=== PATIENT | male | born 1940 | race Caucasian/White ===

== ENCOUNTER 2020-01-21 19:50 | Observation (INO) | payer OTHER, SELFPAY ==
[2020-01-21] VITALS (9 sets, daily range): BP systolic 111–149; BP diastolic 59–95; PULSE 61–129; RESP 16–20; TEMP 35.7–36.2; O2SAT 96–98; BMI 29.1
--- NOTE | ~2020-01-21 | XR_ITS ---
EXAMINATION: XR chest 2V DATE: 01/21/2020 20:44 INDICATION: Tachycardia TECHNIQUE: PA and lateral views of the chest are obtained. COMPARISON: None available FINDINGS: The lungs are hyperinflated but free of acute opacities. There is scarring of the lung apic es. There is no pleural effusion or pneumothorax. The cardiomediastinal silhouette is normal. There i s moderate thoracic spondylosis. IMPRESSION: 1. No acute cardiopulmonary abnormality. Reviewed, dictated and finalized at location A.
--- NOTE | 2020-01-21 20:03 | ECG_ITS ---
Measurements Intervals [place] Rate: 130 P: [place]: 0 QRS: -80 QRSD: 131 T: 24 QT: 305 QTc: 449 Interpretive Statements ATRIAL FLUTTER/TACHYCARDIA WITH RAPID VENTRICULAR RESPONSE LEFT AXIS DEVIATION RIGHT BUNDLE BRANCH BLOCK MINIMAL Q WAVES- ANTEROLAT/HIGH LAT LEADS INFERIOR INFARCT, AGE INDETERMINATE BASELINE ARTIFACT- AVL, V2-V3 ABNORMAL ECG Electronically Signed On 01-21-2020 20:21:50 CDT by Rock Gonsalez D.O.
--- NOTE | 2020-01-21 20:03 | ED.ARRPALP ---
HPI - Arrhythmia/Palpitations General Chief Complaint: Arrhythmia/Palpitations Stated Complaint: elevated pulse rate Time Seen by Provider: 01/21/20 20:03 Source: patient Mode of arrival: ambulatory Limitations: no limitations History of Present Illness HPI narrative: Patient is a 79-year-old male who presents for evaluation of palpitations. Patient states that he was eating dinner this evening when his watch alerted him to a fast heart rate greater than 140. Patient states he otherwise is feeling well. Patient denies any current chest pain or shortness of breath. He states he has palpitations from time to time, but has not noticed any palpitations this evening. No lightheadedness or dizziness. Patient states he has a history of a right bundle branch block, but otherwise is not aware of having any heart problems. He does not follow with a psychiatry instructor. He is not on any anticoagulation. Patient denies recent illness, no recent nausea, vomiting, no extreme exertional activity. Related Data Home Medications Medication Instructions Recorded Confirmed fexofenadine 180 mg PO DAILY 01/21/20 01/21/20 finasteride 5 mg PO DAILY 01/21/20 01/21/20 fluorouracil 5 % TOPICAL DAILY 01/21/20 01/21/20 levothyroxine [Synthroid] 125 mcg PO DAILY 01/21/20 01/21/20 vjnlyqhmplgl-xwc-nccb-FA-vit K 1 tablet PO DAILY 01/21/20 01/21/20 [Adults Multivitamin] pravastatin 40 mg PO DAILY 01/21/20 01/21/20 tamsulosin 0.4 mg PO DAILY 01/21/20 01/21/20 Allergies Allergy/AdvReac Type Severity Reaction Status Date / Time amoxicillin Allergy Unknown Unknown Verified 01/21/20 21:38 Penicillins Allergy Unknown RED ITCHY Unverified 01/21/20 21:38 RASH Review of Systems Review of Systems: Narrative: CONSTITUTIONAL: Denies fever CARDIOVASCULAR: Denies chest pain, denies palpitations, reports elevated heart rate RESPIRATORY: Denies cough or dyspnea. GASTROINTESTINAL: Denies abdominal pain SKIN: Denies rash MUSCULOSKELETAL: Denies back pain NEUROLOGIC: Denies headache PMFSH Past Medical History Medical History Hyperlipidemia Right inguinal hernia Skin cancer Surgical History Surgical History H/O partial thyroidectomy History of tonsillectomy Social History Social History (Updated 01/21/20 @ 20:20 by Donna Gonzalez MD) Smoking status: Current some day smoker Tobacco type: pipe Alcohol intake: never Substance use: never Gender identity (if verbalized by the patient): Male Exam Narrative: Exam Narrative: GENERAL: Awake, alert, conversant HEAD: Normocephalic, atraumatic. EYES: PERRLA and EOMI. ENT: Nares clear, no rhinorrhea or epistaxis. Mucous membranes moist. NECK: Supple. CHEST: No respiratory distress, breathing even and non labored HEART: Tachycardic rate, regular rhythm ABDOMEN:Non distended, non tender EXTREMITIES: Normal range of motion. No edema. SKIN: Warm, dry, no rash. NEURO:No focal deficits. Alert and oriented x3 Course Vital Signs Vital signs: Vital Signs Temperature 36.2 C L 01/21/20 19:54 Pulse Rate 129 H 01/21/20 19:54 Respiratory Rate 16 01/21/20 19:54 Blood Pressure 149/87 H 01/21/20 19:54 Pulse Oximetry 98 01/21/20 19:54 Temperature 36.2 C L 01/21/20 19:54 Pulse Rate 123 H 01/21/20 21:41 Respiratory Rate 20 01/21/20 21:41 Blood Pressure 111/71 01/21/20 21:41 Pulse Oximetry 96 01/21/20 21:41 MDM - Arrhythmia/Palpitations MDM Narrative Medical decision making narrative: Patient is a 79-year-old male who presented for evaluation of palpitations. At the time of initial assessment, ABCs are intact, patient is tachycardic in the 130s, EKG is consistent with a flutter with RVR. IV access obtained and labs are drawn. Patient was given IV fluids without any improvement in his tachycardia. Given possible unreliable symptoms onset after I discussed with martha
[2020-01-21 20:18] LABS: Basophils Percent Auto 0.4 % (0.2-1.2); Eosinophils Absolute Auto 0.2 K/mm3 (0-0.3); Hematocrit 45.9 % (42.0-52.0); Hemoglobin 15.6 g/dL (14.0-18.0); Immature Granulocyte Absolute 0.02 K/mm3 (0.00-0.031); Immature Granulocyte Percent A 0.2 % (0-0.5); Lymphocytes Absolute Auto 2.28 K/mm3 (0.9-3.2); Lymphocytes Percent Auto 26.9 % (18.3-44.2); Mean Corpuscular Hemoglobin 32.2 pg (26-34); Mean Corpuscular Volume 94.8 fl (80-100); Mean Platelet Volume 9.4 fl (7.4-10.4); Monocytes Absolute Auto 0.7 K/mm3 (0.1-0.6); Monocytes Percent Auto 8.1 % (2.6-8.5); Neutrophils Absolute Auto 5.3 K/mm3 (1.3-6.7); Neutrophils Percent Auto 62.4 % (45.5-73.1); Platelet Count Result 235 k/mm3 (150-375); Red Blood Count 4.84 M/mm3 (4.6-6.20); Red Cell Distribution Width 11.9 % (11.5-14.5); White Blood Count 8.5 K/mm3 (4.5-10.0)
--- NOTE | 2020-01-21 20:22 | PC.NURSE ---
lab notified of add on TSH
[2020-01-21] MEDS: SODIUM CHLORIDE 0.9% IV 1,000 ML 999 ML IV CONT (20:26)
[2020-01-21 20:27] LABS: Prothrombin Time 13.3 Seconds (11.1-14.7)
[2020-01-21] MEDS: ASPIRIN 81 MG CHEWABLE TABLET 324 MG PO (20:27)
[2020-01-21 20:28] LABS: Partial Thromboplastin Time 28.5 SECONDS (22.3-36.8)
[2020-01-21 20:31] LABS: Anion Gap 10.9 mmol/L (7-16); Blood Urea Nitrogen 17 mg/dL (9-20); Calcium 9.8 mg/dL (8.4-10.2); Carbon Dioxide 29 mmol/L (22-30); Chloride 102 mmol/L (98-107); Estimated Glomerular Filt Rate > 60; Glucose 109 mg/dL (75-110); Potassium 3.9 mmol/L (3.4-5.0); Sodium 138 mmol/L (137-145)
[2020-01-21 20:43] LABS: Troponin I 0.025 ng/mL (0.000-0.034)
[2020-01-21] MEDS: dilTIAZem HCl INJ 25 MG/5 ML VIAL 10 MG IV PUSH (21:17)
[2020-01-21] MEDS: ENOXAPARIN 100 MG/ML SYRINGE 90 MG SUB-Q (22:46)
--- NOTE | 2020-01-21 23:37 | PC.NURSE ---
This patient, Magnus Kaur, was admitted to IMU Room 207-01 on 01/21/20 at 2315. Patient/family oriented to hospital policies and general routines including ID bracelet, bed and alarms, visiting hours, pain management, procedures, bathroom and other care routines, personal items, smoking policy, room service/diet, and visiting hours. Valuables list has been completed. Information on how to activate the Rapid Response Team has been discussed. Patient/Family are encouraged to report perceived risks to care and to ask questions if they do not understand what they are told or what they should do.
[2020-01-22] VITALS (15 sets, daily range): BP systolic 115–130; BP diastolic 60–67; PULSE 50–68; RESP 18–20; TEMP 35.6–36.3; O2SAT 98–100
[2020-01-22 00:03] LABS: Troponin I 0.038 ng/mL (0.000-0.034)
[2020-01-22] MEDS: PRAVASTATIN SODIUM 20 MG TABLET 40 MG PO (09:52)
[2020-01-22] MEDS: MULTIVITAMINS /C LUTEIN (CENTRUM SILVER) TABLET *BKC 1 TAB PO (09:52)
[2020-01-22] MEDS: FINASTERIDE 5 MG TABLET PO (09:52)
[2020-01-22] MEDS: LEVOTHYROXINE SODIUM 125 MCG TABLET PO (09:53)
[2020-01-22] MEDS: LORATADINE 10 MG TABLET PO (09:53)
[2020-01-22] MEDS: TAMSULOSIN HCL 0.4 MG CAPSULE PO (09:53)
[2020-01-22] MEDS: ENOXAPARIN 100 MG/ML SYRINGE 90 MG SUB-Q (09:53)
--- NOTE | 2020-01-22 09:53 | PM.IMHP ---
H&P: HPI History of Present Illness Chief complaint: A flutter with RVR Narrative: Magnus Kaur is a 79 year old male with PMH significant for hyperlipidemia, hypothyroidism following thyroid lobectomy, current tobacco use with 60 year smoking hx, and benign prostatic hyperplasia who presented to the emergency department for the evaluation of tachycardia demonstrated on his watch. 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 He reports that he tried to stay hydrated. He sat down to eat dinner at 6PM and his watch alerted him that his heart rate was in the 130s. He was completely asymptomatic during the episode and had no associated palpitations, dizziness, lightheadedness, chest pain, or dyspnea. He reports no prior history of atrial fibrillation or atrial flutter. He reports a known history of right bundle branch block. He has no hx of coronary artery disease or CVA. 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 He denies angina with exertion. He reports a good exercise capacity. He has no additional complaints at this time. Initial workup in the emergency department included EKG with atrial flutter with RVR (rate 130), left axis deviation, right bundle branch block, Q waves in the anterolateral and high lateral leads, QTc 449, WBC 8,500, Hb 15.6, Hct 45.9, platelets 235, sodium 138, potassium 3.9, chloride 102, CO2 29, BUN 17, creatinine 1.1, glucose 109, troponin 0.025 with flat trend up to 0.040, TSH 1.65, and CXR without acute abnormalities. He was treated with IV diltiazem and converted to normal sinus rhythm in the ED. He was anticoagulated with therpeutic lovenox. He was admitted to the hospitalist service for further evaluation and treatment and cardiology was consulted. Review of Systems Review of Systems: Narrative: Constitutional: Denies sick contacts, fever, chills, fatigue, and appetite change. Eyes: Denies vision change. No additional eye complaints. ENT: Denies change in hearing, nasal congestion, dysphagia, odynophagia, and sore throat. Cardiovascular: Reports tachycardia on watch with rates in 130s. Denies palpitations and chest pain. Denies PND and orthopnea. Denies dyspnea on exertion. Respiratory: Denies cough and shortness of breath. Gastrointestinal: Denies abdominal pain, nausea, and vomiting. Denies melena and hematochezia. Genitourinary: Denies dysuria, urgency, and hesitancy. Reports increased urinary frequency due to BPH. Musculoskeletal: Denies joint pain and swelling. Denies muscle cramps and weakness. Skin: Reports that he follows with a gta and is scheduled for lesion excisions in the near future. Notes birthmark on the right forehead. Neurologic: Denies focal weakness, paresthesias, confusion, and speech change. Psychiatric: Denies mood change. Denies anxiety and depression. Hematologic: Denies easy bruising and bleeding. All systems reviewed & are unremarkable except as noted in HPI and below PMFSH Past Medical History Medical History Benign prostatic hyperplasia Hyperlipidemia Hypothyroidism Skin cancer Surgical History Surgical History H/O partial thyroidectomy History of right inguinal hernia repair History of tonsillectomy Hx of vasectomy Family History Family History Father Colon cancer Mother Cancer of stomach Daughter Migraines Social History Social History Social History: Mr. Kaur lives at home with his Rody Kaur. He has 4 children. 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 He wises to be a full code and he has designated his , Rody Kaur, as his surrogate decision maker. He smokes a pipe and notes the tobacco equivalent to 3/4 PPD. He reports a 60 year smoking hx. He reports a hx of alcohol use (2-3 rum
--- NOTE | 2020-01-22 12:51 | PM.CNCAR ---
Assessment and Plan Assessment and plan (1) Atrial flutter with rapid ventricular response: Code(s): I48.92 - Unspecified atrial flutter Status: Acute Assessment and Plan: spontaneously converted to sinus rhythm after receiving intravenous diltiazem. Maintaining sinus rhythm without directed medical therapy. Given enoxaparin 1 milligram/kilogram subcutaneous q.12 hours from the emergency department. Asymptomatic. No prior history. CHADS2 Vasc score 2. discussed risks, benefits, and alternatives with anticoagulation with regards to embolic stroke risk versus bleeding. Patient verbalized understanding. All questions answered to his satisfaction. I would recommend initiation of systemic anticoagulation and patient agrees. Eliquis 5 mg twice daily. Initiate metoprolol tartrate 12.5 mg twice daily. Outpatient 2D echocardiogram. Further determination with regards to pursue to be ischemic evaluation depending on recurrence of arrhythmia and or associated symptoms, echocardiographic findings. explained in detail management options including medications, referral for radiofrequency ablation, concerns with uncontrolled atrial flutter, the pathophysiology and plan of care. Patient agrees. Will give metoprolol tartrate prior to discharge. Patient may be discharged home in stable condition to follow up as an outpatient. He will contact the office Thursday follow-up in the office within the next 2-4 weeks. Will set up a 2D echocardiogram in our office in that time. If head injury, bleeding and/or significant falls advised to go to ER immediately. Patient verbalized understanding. Monitor For bleeding on systemic anticoagulation. do not take aspirin concomitantly with systemic anticoagulation given clinical circumstances. (2) Hyperlipidemia: Code(s): E78.5 - Hyperlipidemia, unspecified Status: Chronic Assessment and Plan: continue pravastatin. (3) Elevated troponin: Code(s): R79.89 - Other specified abnormal findings of blood chemistry Status: Acute Assessment and Plan: Not acute coronary syndrome, no anginal symptoms. Non [place] troponin elevation most likely type 2 infarct secondary to atrial flutter with rapid ventricular response not plaque rupture and/or myocardial infarction. (4) Tobacco dependence: Code(s): F17.200 - Nicotine dependence, unspecified, uncomplicated Status: Chronic Assessment and Plan: Smoking cessation counseling. (5) Right bundle branch block (RBBB): Code(s): I45.10 - Unspecified right bundle-branch block Status: Acute Assessment and Plan: chronic. History of Present Illness History of Present Illness Consult date/time: Date of service:01/22/20 12:51 This is a cardiology consultation at the request of Yisel Pascual of the [facility] service for our opinion regarding atrial flutter with rapid ventricular response. Requesting physician: Yisel Pascual PA-C Consult reason: Other ( Atrial flutter with rapid ventricular response) Reason For Visit: A flutter with RVR Narrative: patient is a 79-year-old male with a past medical history significant for hyperlipidemia, hypothyroidism, tobacco abuse, and chronic right bundle branch block who was in his usual state of health when he noted on his Apple watch it was giving him an alert to his heart rate was elevated at 128 beats per minute. He informed his who then advised him to the present to the emergency department. he was found to be in atrial flutter with RVR for which she received IV diltiazem and subsequently converted to sinus rhythm which he is maintained. He denies any symptoms at any time. he denies palpitations, chest pain, dizziness, shortness of breath, weakness, fatigue, falls. He denies recent illnesses, sick contacts, nausea, vomiting, lower extremity edema, orthopnea and/or PND. He remains active and has no limitations. He has no prior kno
[2020-01-22] MEDS: METOPROLOL TARTRATE 12.5 MG TABLET PO (13:26)
--- NOTE | 2020-01-22 15:02 | PC.NURSE ---
Spoke with Dr Funes regarding patient becoming bradycardic. Pt is asymptomatic. Dr. Funes is ok with patient being discharged on metoprolol 12.5mg q12hr. Pt to hold metoprolol if he becomes symptomatic. REDD Blankenship notified of situation.
--- NOTE | 2020-01-22 16:29 | PM.DS ---
DS: Admitting Diagnosis Admitting Diagnosis Admitting Diagnosis: Unspecified atrial flutter DS: Discharge Diagnosis Discharge Diagnosis (1) Atrial flutter with rapid ventricular response: Code(s): I48.92 - Unspecified atrial flutter Status: Acute Assessment and Plan: Mr. Kaur is a 79 y.o. male with PMH significant for BPH, hyperlipidemia, hypothyroidism, and skin cancer who presented to the emergency department for the evaluation of tachycardia which was noted on his apple watch with rates of 130s. Initial EKG in the emergency department revealed atrial flutter with RVR (rate 130), left axis deviation, right bundle branch block, Q waves in the anterior and lateral leads, QTc 449, troponin elevation with flat trend up to 0.040, CXR without acute abnormalities, and CBC and CMP unremarkable. He remained asymptomatic during the episode. He converted to normal sinus rhythm with IV diltiazem in the emergency department. He was placed on therapeutic lovenox. TSH was WNL. Cardiology was consulted and recommended transitioning him to PO eliquis and metoprolol tartrate. CHADS2 Vasc score was 2. He was cleared from a cardiology standpoint for discharge with plans for close outpatient follow-up for 2D echocardiogram in the office. The risks of systemic anticoagulation were discussed with the patient at length and he verbalized understanding. Smoking cessation was encouraged and the risks of continued tobacco use were discussed. He was discharged in stable condition on the afternoon of 01/22/20. (2) Elevated troponin: Code(s): R79.89 - Other specified abnormal findings of blood chemistry Status: Acute Assessment and Plan: Troponin was elevated up to 0.040 with a flat trend. This is likely elevated in the setting of atrial flutter with RVR. Cardiology is on board and his troponin elevation was not felt to be due to acute coronary syndrome. (3) Hypothyroidism: Code(s): E03.9 - Hypothyroidism, unspecified Status: Chronic Assessment and Plan: TSH was normal at 1.65 01/21/20 and levothyroxine was continued. (4) Benign prostatic hyperplasia: Code(s): N40.0 - Benign prostatic hyperplasia without lower urinary tract symptoms Status: Chronic Assessment and Plan: Chronic with no acute issues. Tamsulosin and finasteride were continued. (5) Hyperlipidemia: Code(s): E78.5 - Hyperlipidemia, unspecified Status: Chronic Assessment and Plan: Pravastatin was continued. (6) Tobacco dependence: Code(s): F17.200 - Nicotine dependence, unspecified, uncomplicated Status: Chronic Assessment and Plan: Smoking cessation was encouraged at length. DS: Summary Hospital Course Reason for hospitalization: Tachycardia noted on apple watch Hospital Course: As above. Status at Discharge Functional status at discharge: independent ambulation Overall status at discharge: patient is back to baseline Time Spent with Patient Time attestation: Total time spent providing and/or coordinating discharge services: 35 minutes Exam Narrative: Exam Narrative: Vitals at presentation: Temp Pulse Resp BP Pulse Ox 97.2 F L 129 H 16 149/87 H 98 01/21/20 19:54 01/21/20 19:54 01/21/20 19:54 01/21/20 19:54 01/21/20 19:54 Vitals at discharge: Temp Pulse Resp BP Pulse Ox 97.3 F L 52 L 20 130/64 100 01/22/20 16:41 01/22/20 16:41 01/22/20 16:41 01/22/20 16:41 01/22/20 16:41 General: Very pleasant well-developed and well-nourished 79 y.o. male lying in the semi-recumbent position in bed in no acute distress. HEENT: Normocephalic and atraumatic. Sclerae anicteric. EOMI. Moist
== END 2020-01-22 17:10 | disposition home or self-care (01) ==
LOC: ANHED 22:33 → ANHIMU 22:44
PROVIDERS: Admitting Provider Internal Medicine; Emergency Provider Emergency Medicine; PCP Internal Medicine; Visit Provider Internal Medicine
DX: I48.92 Unspecified atrial flutter (principal); R79.89 Other specified abnormal findings of blood chemistry; I45.10 Unspecified right bundle-branch block; E89.0 Postprocedural hypothyroidism; E78.5 Hyperlipidemia, unspecified; C44.90 Unspecified malignant neoplasm of skin, unspecified; N40.0 Benign prostatic hyperplasia without lower urinary tract symptoms; F17.290 Nicotine dependence, other tobacco product, uncomplicated; Z79.899 Other long term (current) drug therapy
CPT/HCPCS: 36415; 71046; 80048; 84443; 84484; 85025; 85610; 85730; 93005; 96361; 96365; 96372; 99285; A9270; G0378; J1650; J7030

== ENCOUNTER 2020-12-21 12:25 | Outpatient (CLI) | payer OTHER, SELFPAY ==
--- NOTE | ~2020-12-21 | CT_ITS ---
EXAMINATION: CT abdomen pelvis wo/w con DATE: 12/21/2020 13:53 INDICATION: Gross hematuria. TECHNIQUE: Computed tomography (CT) of the abdomen and pelvis was performed without and with intraven ous contrast using a total of 130 mL Omnipaque-350 intravenous contrast with a double-bolus technique for simultaneous opacification of the renal parenchyma and renal collecting system. Automated exposu re control and iterative reconstruction technique were employed. The dose-length product was 1291.78 mGy-cm. COMPARISON: CT abdomen and pelvis 12/18/2010 FINDINGS: The visualized portions of the lung bases are clear without pneumonia or pleural effusion. The heart size is normal. No pericardial effusion. There is a small sliding hiatal hernia. There are cysts in t he liver measuring up to 4.6 cm. There is a gallstone in the gallbladder, which is normal in size. Th e spleen is normal. Incomplete pancreas divisum is noted. The adrenal glands are normal. There are cy sts in the kidneys measuring up to 15 mm on the right. There are 6 mm and 10 mm stones in right kidne y. There is a 5 mm stone in proximal right ureter. The ureters are well opacified by contrast. The le ft ureter is normal. There are 2 mm are 10 mm stones in the bladder. The prostate is mildly enlarged. The bladder is not well opacified. There is diverticulosis of the colon without evidence of divertic ulitis. There are no dilated loops of bowel. The appendix is normal. There are no pathologically enla rged lymph nodes. There is no free intraperitoneal fluid. There is a left inguinal hernia containing fat. There are likely changes of right inguinal hernia repair. There is severe lumbar spondylosis. IMPRESSION: 1. 5 mm stone in proximal right ureter. No hydronephrosis. 2. Nonobstructing right kidney stones. 3. Bladder stones. Reviewed, dictated and finalized at location A.
--- NOTE | ~2020-12-21 | XR_ITS ---
EXAMINATION: XR abdomen/kub 1V DATE: 12/21/2020 12:57 INDICATION: Gross hematuria. TECHNIQUE: A supine view of the abdomen on 2 radiographs was obtained. COMPARISON: CT abdomen and pelvis 12/21/2020 FINDINGS: There are no dilated loops of bowel. There is a 5 mm stone in proximal right ureter. There are 2 stones in right kidney with the larger measuring 10 mm. There are stones in the bladder. IMPRESSION: 1. Stones in the right kidney, proximal right ureter, and bladder. Reviewed, dictated and finalized at location A.
[2020-12-21 13:34] LABS: Estimated Glomerular Filt Rate 49
== END 2020-12-21 12:26 | disposition home or self-care (01) ==
PROVIDERS: PCP Internal Medicine; Visit Provider Nurse Practitioner Family
DX: R31.0 Gross hematuria (principal); N20.2 Calculus of kidney with calculus of ureter; N21.0 Calculus in bladder
CPT/HCPCS: 74018; 74178; Q9967

== ENCOUNTER 2021-01-02 08:31 | Outpatient (CLI) | payer OTHER, SELFPAY ==
--- NOTE | 2021-01-02 08:35 | ECG_ITS ---
Measurements Intervals [place] Rate: 61 P: 46 [place]: 219 QRS: -37 QRSD: 141 T: 27 QT: 439 QTc: 443 Interpretive Statements SINUS RHYTHM WITH FIRST DEGREE AV BLOCK LEFT AXIS DEVIATION RIGHT BUNDLE BRANCH BLOCK BASELINE ARTIFACT- I, III, AVR, AVL, AVF ABNORMAL ECG Electronically Signed On 01-02-2021 11:36:22 CDT by Rock Gonsalez D.O.
== END 2021-01-02 08:32 | disposition home or self-care (01) ==
PROVIDERS: PCP Internal Medicine; Visit Provider Urology
DX: N20.1 Calculus of ureter (principal); E78.5 Hyperlipidemia, unspecified; Z01.818 Encounter for other preprocedural examination; I44.0 Atrioventricular block, first degree
CPT/HCPCS: 87086; 93005

== ENCOUNTER 2021-01-07 07:55 | Outpatient (CLI) | payer OTHER, SELFPAY ==
--- NOTE | ~2021-01-07 | XR_ITS ---
EXAMINATION: XR abdomen/kub 1V EXAM DATE: 01/07/2021 08:11 INDICATION: Right ureteral stone. Hematuria. TECHNIQUE: Frontal projection of the upper abdomen, frontal projection lower abdomen/pelvis for inter pretation. Comparison is made to prior examination from 11/30/2024. FINDINGS: Probable right calyceal stones identified. Previously seen stone between the right L3 and L4 transverse process is no longer identified, but there is bowel gas overlying this entire region an d the sacrum. Some pelvic calcifications are consistent with phleboliths, and reportedly patient does have known bladder stones. Nonobstructive bowel gas pattern. Lung bases are unremarkable. IMPRESSION: Right nephrolithiasis, bladder stones. Reviewed, dictated and finalized at location A.
== END 2021-01-07 07:56 | disposition home or self-care (01) ==
PROVIDERS: PCP Internal Medicine; Visit Provider Urology
DX: N20.2 Calculus of kidney with calculus of ureter (principal); N21.0 Calculus in bladder
CPT/HCPCS: 74018

== ENCOUNTER 2021-01-08 01:58 | Day surgery (SDC) | payer OTHER, SELFPAY ==
[2021-01-01 09:38] VITALS: BMI 29.5
--- NOTE | 2021-01-07 14:31 | WPDANESEPPF ---
Anes - Initial Pre Proc Eval Procedure: Operation Date: 01/08/21 11:45 Proposed Procedures p Cystoscopy, Right Retrograde Pyelogram, Right Ureteroscopy with Right Stone Extraction, - Brian Andrews MD s Laser of Bladder Stones - Brian Andrews MD Date/Time: 01/07/21 14:31 Surgeon: Brian Andrews MD Pre Op Diagnosis: Right Ureteral Calculus, Bladder Stones Patient Data Age: 80 Gender: M Height: 1.75 m Weight: 90.75 kg Allergies Allergy/AdvReac Type Severity Reaction Status Date / Time amoxicillin Allergy Unknown Rash Verified 01/08/21 12:30 Penicillins Allergy Unknown RED ITCHY Verified 01/08/21 12:30 RASH Home Medications Medication Instructions Recorded Confirmed Type fexofenadine 180 mg PO DAILY 01/21/20 01/08/21 History finasteride 5 mg PO DAILY 01/21/20 01/08/21 History levothyroxine [Synthroid] 125 mcg PO DAILY 01/21/20 01/08/21 History pravastatin 40 mg PO DAILY 01/21/20 01/08/21 History tamsulosin 0.4 mg PO DAILY 01/21/20 01/08/21 History apixaban [Eliquis] 5 mg PO Q12HR 30 Days #60 tablet 01/22/20 01/08/21 Rx metoprolol tartrate 12.5 mg PO Q12HR 30 Days #30 tablet 01/22/20 01/08/21 Rx sulfamethoxazole-trimethoprim 1 tablet PO BID 01/08/21 01/08/21 History Patient hx anesthesia problems: none Family hx anesthesia problems: none PMFSH Past Medical History Medical History (Updated 01/07/21 @ 14:32 by Fco Esparza MD) Atrial flutter with rapid ventricular response Benign prostatic hyperplasia Hyperlipidemia Hypothyroidism Melanoma Right bundle branch block (RBBB) Skin cancer Tobacco dependence Surgical History Surgical History H/O partial thyroidectomy History of right inguinal hernia repair History of tonsillectomy Hx of vasectomy Family History Family History Father Colon cancer Mother Cancer of stomach Daughter Migraines Social History Social History Social History: Mr. Kaur lives at home with his Rody Kaur. He has 4 children. 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 He wises to be a full code and he has designated his , Rody Kaur, as his surrogate decision maker. He smokes a pipe and notes the tobacco equivalent to 3/4 PPD. He reports a 60 year smoking hx. He reports a hx of alcohol use (2-3 rum drinks) 20 years ago. He denies current alcohol or substance use. Smoking packs per day: 0.75 Smoking cigarettes per day: 15.0 Years smoked: 60 Smoking pack-years: 45.00 Smoking status: Current every day smoker Tobacco type: pipe Additional smoking assessment comments: HAS SMOKED A PIPE X 65 YRS Alcohol intake: former Substance use: never Substance use type: does not use Living arrangements: with family Gender identity (if verbalized by the patient): Male Spiritual care concerns: No Anes - Eval Final PreProcedure Day of Procedure 01/07/21 14:31 Patient weight: obese Heart: regular rate and rhythm Lungs: clear to auscultation and normal air movement Airway: Mallampati scale class II Neurological: alert and oriented Last oral intake: >/= 8 hours ASA classification: III Emergent: no Anesthetic plan: proceed Anesthesia type and monitoring: general LMA Informed Consent: The patient's anesthetic plan and its attendant risks and benefits were discussed with the patient/family/POA. Questions were solicited and answers provided to the satisfaction of the patient/family/POA.
--- NOTE | ~2021-01-08 | XR_ITS ---
EXAMINATION: XR abdomen/kub 1V DATE: 01/08/2021 09:57 INDICATION: Nephrolithiasis for preoperative evaluation. TECHNIQUE: A supine view of the abdomen on 2 radiographs was obtained. COMPARISON: KUB dated 01/07/[address] dated 12/21/2020. FINDINGS: There are 3 stones measuring between 4-6 mm at the lower pole of the right kidney. Persistent 7 x 3 m m stone in the proximal right ureter projecting over the right transverse process of L5. [address] one in the bladder. Couple phleboliths in the right hemipelvis along some atherosclerotic calcificati on along the bilateral iliac arteries. No left-sided urolithiasis. Normal bowel gas pattern with mode rate amount of scattered colonic stool. Severe lumbar spondylosis. IMPRESSION: 1. Right-sided urolithiasis with persistent 7 x 3 mm stone in the proximal right ureter. Reviewed, dictated and finalized at location A. IMPRESSION: 1. Right-sided urolithiasis with persistent 7 x 3 mm stone in the proximal righ t ureter.
--- NOTE | ~2021-01-08 | XR_ITS ---
EXAMINATION: XR retrograde pyelo w/stent RT EXAM DATE: 01/08/2021 14:42 INDICATION: Right-sided retrograde pyelogram, stone extraction, stent placement. TECHNIQUE: Fluoroscopy used during XR retrograde pyelo w/stent RT performed by Dr. Brian wahl MD, urologist. The radiologist Gael Gandara M.D. dictating this report of the image(s) availabl e was not present for the procedure. Total fluoroscopic time of 37 seconds. The DAP for this proced ure was 531 radcm2. A total of 8 images sent to PACS from the exam. FINDINGS: Difficult to identify the ureteral stone on olap developer. The right ureter was cannulated, inject ed retrograde fashion. Mild right hydroureteronephrosis. A double-J stent was placed. Correlate with procedure note. IMPRESSION: Mild right hydroureteronephrosis. Stent in position. Reviewed, dictated and finalized at location A.
--- NOTE | 2021-01-08 11:48 | SUR.PREOP ---
1015-DR. RAMÍREZ AWARE PT'S CT SCAN WAS DONE YESTERDAY AT [facility], HE WILL FOLLOW UP WITH HIS OFFICE TO OBTAIN RESULTS. 1030-PT AWARE OF SURGERY DELAY WHILE ATTEMPTING TO OBTAIN CT RESULTS. WILL AWAIT TO CONSENT AND FURTHER PREPARE PT.
[2021-01-08 11:57] VITALS: BP 146/58; PULSE 67; RESP 20; TEMP 36.6; O2SAT 99
--- NOTE | 2021-01-08 12:06 | SUR.PREOP ---
1200-CT RESULTS OBTAINED, DR. RAMÍREZ TALKED WITH PT AND WILL PROCEED ALBEIT, PT WILL BE DELAYED R/T DELAY IN RECEIVING TEST RESULT.
[2021-01-08] MEDS: LACTATED RINGERS 1,000 ML 30 ML IV CONT (12:25)
--- NOTE | 2021-01-08 13:16 | WPDHPUPDATE1 ---
History and Physical Update Update Date/Time: 01/08/21 13:16 History and Physical has been reviewed, including an updated exam of the patient. There are NO changes in the patient's condition. Risks, benefits, and alternatives have been discussed and questions answered. Patient agrees to proceed with procedure. Proceed with cystoscopy, right retrograde pyelogram, right ureteroscopy with stone extraction, possible holmium laser and stent placement, holmium laser of bladder stones
[2021-01-08] MEDS: ceFAZolin 2 GM/D5W 50 ML 2 GM/50 ML BAG IVPB (13:37)
[2021-01-08] MEDS: LIDOCAINE HCL 2% GEL UROJET 10 ML PKG MUCOUS MEM (13:58)
--- NOTE | 2021-01-08 14:39 | P.OP_ITS ---
Procedure Note - Detailed Date of Procedure 01/08/21 Pre-op Diagnosis Right Ureteral Calculus, Bladder Stones Post-op Diagnosis same Procedure Performed Cystoscopy, right retrograde pyelogram, right ureteroscopy with holmium laser, stone extraction, right ureteral stent placement 4.8 Vincentian contour, extraction of large bladder stone. Surgeon Brian Andrews MD Anesthesia general Description of Procedure Patient is taken to the operative suite and correctly identified. Once anesthesia is obtained he is placed in dorsal lithotomy position and prepped and draped usual sterile fashion. Twenty-two Vincentian scope was inserted into the bladder. He has a large bladder stone which we were able to manipulate out using a large cold cup biopsy forceps. The right ureteral orifice was then cannulated. Distal ureteroscopy was performed using a rigid ureteral scope. There were no stones in the distal ureter. We then placed a flexible mini ureteral scope in. The entire ureter was visualized without any evidence of obstructing stone. The kidney was then visualized in its entirety. We did visualize a stone that measured about 7 mm. This was grasped with an escape basket. It was too large to retrieve in 1 piece and thus we used a holmium laser fiber to fragment it. Pyelogram was performed to confirm placement of the stent. 4.8 Vincentian contour stent was then placed with the proximal end coiled in the renal pelvis and the distal in the bladder. 2% viscous lidocaine was inserted urethra patient is taken recovery stable condition. He will follow up in a week's time for stent removal. Drains Yes Packing No Complications No immediate complications Condition stable Disposition PACU
[2021-01-08 14:45] VITALS: BP 122/68; PULSE 68; RESP 15; TEMP 36.1; O2SAT 100
[2021-01-08 15:00] VITALS: BP 126/67; PULSE 68; RESP 17; O2SAT 97
[2021-01-08 15:13] VITALS: BP 132/64; PULSE 70; RESP 13; O2SAT 96
[2021-01-08 15:15] VITALS: BP 135/72; PULSE 77; RESP 14
[2021-01-08 15:45] VITALS: BP 131/76; PULSE 78; RESP 14
== END 2021-01-08 15:56 | disposition home or self-care (01) ==
PROVIDERS: PCP Internal Medicine; Visit Provider Urology
PROC: (CPT 52352; principal; 2021-01-08 11:45)
DX: N13.2 Hydronephrosis with renal and ureteral calculous obstruction (principal); N21.0 Calculus in bladder; I48.91 Unspecified atrial fibrillation; N40.0 Benign prostatic hyperplasia without lower urinary tract symptoms; E78.5 Hyperlipidemia, unspecified; E89.0 Postprocedural hypothyroidism; I45.10 Unspecified right bundle-branch block; Z79.01 Long term (current) use of anticoagulants; F17.290 Nicotine dependence, other tobacco product, uncomplicated; E66.9 Obesity, unspecified; Z68.28 Body mass index [BMI] 28.0-28.9, adult
CPT/HCPCS: 52356; 74018; 74420; 82365; 87086; 88300; 93005; A9270; C1769; C2617; J0690; J1100; J2405; J2704; J3010; J7120; Q9966

== ENCOUNTER 2021-03-22 06:56 | Outpatient (CLI) | payer OTHER, SELFPAY ==
--- NOTE | ~2021-03-22 | XR_ITS ---
EXAMINATION: XR abdomen/kub 1V EXAM DATE: 03/22/2021 07:18 INDICATION: RT renal stone, Recent UTI TECHNIQUE: Frontal projection(s) of the abdomen for interpretation. Correlation is made to CT same da te. FINDINGS: Probable identification of the right distal ureteral stone, indicated. Right nephrolithias is also likely identified. Large amount of bowel gas over the left side of the abdomen. Nonobstructiv e bowel gas pattern. There are bony degenerative changes. IMPRESSION: Right distal ureteral stone. Right nephrolithiasis. Reviewed, dictated and finalized at location D.
--- NOTE | ~2021-03-22 | CT_ITS ---
EXAMINATION: CT abdomen pelvis wo con EXAM DATE: 03/22/2021 07:23 INDICATION: RT renal stone right kidney stone. TECHNIQUE: Spiral CT of the abdomen and pelvis was performed without contrast. Axial, coronal and sag ittal images were reviewed. The dose-length product (DLP) for this examination was 180.70 mGy-cm. T he exposure was tailored according to patient size (auto mA exposure control), and iterative reconstr uction (ASIR) was used as additional dose reduction technique. Comparison is made to prior examinatio n from 12/21/2020. FINDINGS: There is a 3 x 6 mm right mid calyceal stone. There is approximately 4 x 7 mm right distal ureteral stone, about 3 cm from the ureterovesicular junction (axial image 109). This was in the righ t ureteropelvic junction on prior study, has migrated distally. Previously seen bladder stones are no longer identified. Small bilateral renal cysts. Multiple liver fluid density lesions consistent with cysts unchanged. There is mild prostatomegaly. Small left inguinal fat-containing hernia. The sple en, adrenal glands and pancreas are unremarkable. 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 Gallbladd er is unremarkable. No biliary obstruction. There is no retroperitoneal or pelvic lymphadenopathy. The appendix is normal. There is extensive sigmoid predominant colonic diverticulosis. There is no a djacent inflammatory change to suggest diverticulitis. The stomach and small bowel are unremarkable. There is moderate amount of colonic stool. No free intraperitoneal gas. The heart is normal in s ize. There are no pericardial or pleural effusions. Mild emphysema. Moderate to severe lumbar spon dylosis. IMPRESSION: 1. Right distal ureteral 4 x 7 mm stone without hydronephrosis. 2. Right nephrolithiasis. 3. Colonic diverticulosis. Reviewed, dictated and finalized at location D.
== END 2021-03-22 06:57 | disposition home or self-care (01) ==
LOC: ANHIMG 07:00
PROVIDERS: PCP Internal Medicine; Visit Provider Nurse Practitioner Adult Health
DX: N20.2 Calculus of kidney with calculus of ureter (principal); K57.30 Diverticulosis of large intestine without perforation or abscess without bleeding
CPT/HCPCS: 74018; 74176

== ENCOUNTER 2021-03-26 02:52 | Day surgery (SDC) | payer OTHER, SELFPAY ==
[2021-03-22 13:12] VITALS: BMI 25.8
[2021-03-26] VITALS (8 sets, daily range): BP systolic 81–131; BP diastolic 48–65; PULSE 46–59; RESP 14–18; TEMP 36.3–36.4; O2SAT 98–100
--- NOTE | ~2021-03-26 | XR_ITS ---
EXAMINATION: XR retrograde pyelo w/stent RT EXAM DATE: 03/26/2021 10:14 INDICATION: Right stone extraction x2. Stent placement. TECHNIQUE: Fluoroscopy used during XR retrograde pyelo w/stent RT performed by Dr. Brian wahl MD, urologist. The radiologist Gael Gandara M.D. dictating this report of the image(s) availabl e was not present for the procedure. Total fluoroscopic time of 19 seconds. The DAP for this proced ure was 221 radcm2. A total of 6 images sent to PACS from the exam. Correlation is made to KUB from 03/22/2021. FINDINGS: Right ureter was cannulated, injected. There is mild right hydronephrosis. A double-J uret eral stent was placed. Correlate with procedure note. IMPRESSION: Mild right hydronephrosis. Stent in position. Reviewed, dictated and finalized at location A.
--- NOTE | 2021-03-26 07:40 | WPDANESEPPF ---
Anes - Initial Pre Proc Eval Procedure: Operation Date: 03/26/21 08:30 Proposed Procedures p Cystoscopy, Left Ureteroscopy, Left Retrograde Pyelogram, Left Stone Extraction, Possible Left Stent Placement, - Brian Andrews MD s Possible Holmium Laser Procedure - Brian Andrews MD Date/Time: 03/26/21 07:40 Surgeon: Brian Andrews MD Pre Op Diagnosis: left ureteral stone Patient Data Age: 80 Gender: M Height: 1.75 m Weight: 79.4 kg Allergies Allergy/AdvReac Type Severity Reaction Status Date / Time amoxicillin Allergy Unknown Rash Verified 03/22/21 12:54 Penicillins Allergy Unknown RED ITCHY Verified 03/22/21 12:54 RASH Home Medications Medication Instructions Recorded Confirmed Type fexofenadine 180 mg PO DAILY 01/21/20 03/22/21 History finasteride 5 mg PO DAILY 01/21/20 03/22/21 History levothyroxine [Synthroid] 125 mcg PO DAILY 01/21/20 03/22/21 History pravastatin 40 mg PO DAILY 01/21/20 03/22/21 History tamsulosin 0.4 mg PO DAILY 01/21/20 03/22/21 History Eliquis 5 mg PO Q12HR 30 Days #60 tablet 01/22/20 03/22/21 Rx metoprolol tartrate 12.5 mg PO Q12HR 30 Days #30 tablet 01/22/20 03/22/21 Rx ciprofloxacin HCl 500 mg PO BID 03/22/21 03/22/21 History Patient hx anesthesia problems: none Family hx anesthesia problems: none Results Review: All pre-operative results and documents have been reviewed as part of the pre-operative evaluation. [facility] Past Medical History Medical History Atrial flutter with rapid ventricular response Benign prostatic hyperplasia Hyperlipidemia Hypothyroidism Melanoma Right bundle branch block (RBBB) Skin cancer Tobacco dependence Surgical History Surgical History H/O partial thyroidectomy History of right inguinal hernia repair History of tonsillectomy Hx of vasectomy Family History Family History Father Colon cancer Mother Cancer of stomach Daughter Migraines Social History Social History Social History: Mr. Kaur lives at home with his Rody Kaur. He has 4 children. 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 He wises to be a full code and he has designated his , Rody Kaur, as his surrogate decision maker. He smokes a pipe and notes the tobacco equivalent to 3/4 PPD. He reports a 60 year smoking hx. He reports a hx of alcohol use (2-3 rum drinks) 20 years ago. He denies current alcohol or substance use. Smoking packs per day: 0.75 Smoking cigarettes per day: 15.0 Years smoked: 60 Smoking pack-years: 45.00 Smoking status: Current every day smoker Tobacco type: pipe Additional smoking assessment comments: HAS SMOKED A PIPE X 65 YRS Alcohol intake: former Substance use: never Substance use type: does not use Living arrangements: with family Gender identity (if verbalized by the patient): Male Sexual Orientation (if Verbalized by the Patient): Straight or Heterosexual Spiritual care concerns: No Anes - Eval Final PreProcedure Day of Procedure 03/26/21 07:40 Patient weight: overweight Heart: regular rate and rhythm Lungs: clear to auscultation Airway: Mallampati scale class II Neurological: alert and oriented Last oral intake: >/= 8 hours ASA classification: III Emergent: no Anesthetic plan: proceed Anesthesia type and monitoring: general Results Review: All pre-operative results and documents have been reviewed as part of the pre-operative evaluation. Informed Consent: The patient's anesthetic plan and its attendant risks and benefits were discussed with the patient/family/POA. Questions were solicited and answers provided to the satisfaction of the patient/family/POA.
[2021-03-26] MEDS: LACTATED RINGERS 1,000 ML 30 ML IV CONT ×2 (08:13→10:15)
--- NOTE | 2021-03-26 09:28 | WPDHPUPDATE1 ---
History and Physical Update Update Date/Time: 03/26/21 09:28 History and Physical has been reviewed, including an updated exam of the patient. There are NO changes in the patient's condition. Risks, benefits, and alternatives have been discussed and questions answered. Patient agrees to proceed with procedure. Proceed with cystosocpy, right retrograde, right ureteroscopy with stone extraction, right stent placement , possible holmium laser.
--- NOTE | 2021-03-26 09:31 | PM.IMHP ---
H&P: HPI History of Present Illness Date/Time: 03/26/21 09:317 mm right ureteral calculus Chief Complaint: right ureteral calculus Review of Systems Review of Systems: All systems reviewed & are unremarkable except as noted in HPI and below [facility] Past Medical History Medical History Atrial flutter with rapid ventricular response Benign prostatic hyperplasia Hyperlipidemia Hypothyroidism Melanoma Right bundle branch block (RBBB) Skin cancer Tobacco dependence Surgical History Surgical History H/O partial thyroidectomy History of right inguinal hernia repair History of tonsillectomy Hx of vasectomy Family History Family History Father Colon cancer Mother Cancer of stomach Daughter Migraines Social History Social History Social History: Mr. Kaur lives at home with his Rody Kaur. He has 4 children. 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 He wises to be a full code and he has designated his , Rody Kaur, as his surrogate decision maker. He smokes a pipe and notes the tobacco equivalent to 3/4 PPD. He reports a 60 year smoking hx. He reports a hx of alcohol use (2-3 rum drinks) 20 years ago. He denies current alcohol or substance use. Smoking packs per day: 0.75 Smoking cigarettes per day: 15.0 Years smoked: 60 Smoking pack-years: 45.00 Smoking status: Current every day smoker Tobacco type: pipe Additional smoking assessment comments: HAS SMOKED A PIPE X 65 YRS Alcohol intake: former Substance use: never Substance use type: does not use Living arrangements: with family Gender identity (if verbalized by the patient): Male Sexual Orientation (if Verbalized by the Patient): Straight or Heterosexual Spiritual care concerns: No Meds Home Medications and Allergies Home Medications Medication Instructions Recorded Confirmed Type fexofenadine 180 mg PO DAILY 01/21/20 03/22/21 History finasteride 5 mg PO DAILY 01/21/20 03/22/21 History levothyroxine [Synthroid] 125 mcg PO DAILY 01/21/20 03/26/21 History pravastatin 40 mg PO DAILY 01/21/20 03/22/21 History tamsulosin 0.4 mg PO DAILY 01/21/20 03/22/21 History Eliquis 5 mg PO Q12HR 30 Days #60 tablet 01/22/20 03/26/21 Rx metoprolol tartrate 12.5 mg PO Q12HR 30 Days #30 tablet 01/22/20 03/26/21 Rx ciprofloxacin HCl 500 mg PO BID 03/22/21 03/26/21 History Allergies Allergy/AdvReac Type Severity Reaction Status Date / Time amoxicillin Allergy Unknown Rash Verified 03/26/21 09:14 Penicillins Allergy Unknown RED ITCHY Verified 03/26/21 09:14 RASH Exam Const: General: cooperative Resp: Effort & Inspection: normal respiratory effort Cardio: Rate: regular rate Assessment and Plan Assessment and plan (1) Right ureteral calculus: Code(s): N20.1 - Calculus of ureter Status: Acute Assessment and Plan: cystoscopy, right retrograde, right ureteroscopy with stone extraction, possible laser, stent.
[2021-03-26] MEDS: ceFAZolin 2 GM/D5W 50 ML 2 GM/50 ML BAG IVPB (09:49)
[2021-03-26] MEDS: LIDOCAINE HCL 2% GEL UROJET 10 ML PKG MUCOUS MEM (10:07)
--- NOTE | 2021-03-26 10:12 | P.OP_ITS ---
Procedure Note - Detailed Date of Procedure 03/26/21 Pre-op Diagnosis Right ureteral stone Post-op Diagnosis same (Right ureteral stones x2 approximately 6-7 mm each) Procedure Performed Cystoscopy, right retrograde pyelogram, right ureteroscopy with stone extraction x2, right ureteral stent placement 4.[address] [place] Surgeon Brian Andrews MD Anesthesia general Description of Procedure Patient was taken the operative suite correctly identified. Once anesthesia was obtained was placed in dorsal lithotomy position and prepped and draped usual sterile fashion. Twenty-two St Helenian scope was inserted into the bladder. There are no tumors noted. The right ureteral orifice was cannulated with a guidewi re. We dilated with an 8/10 dilator. Rigid ureteral scope was then inserted. There were 2 stones present. Using an escape basket retrieved both in their entirety. These were sent for analysis. Pyelogram was then performed to confirm placement of the stent. 4.8 [facility] [place] by 26 [address] [place] stent was then placed with the proximal end coiled in the renal pelvis and the distal in the bladder. Bladder was drained. 2% viscous lidocaine was inserted urethra patient is taken recovery stable condition. He will follow up in a week's time for stent removal. Drains Yes Packing No Pathology yes Complications No immediate complications Condition stable Disposition PACU
--- NOTE | 2021-03-26 12:19 | SUR.PHASEII ---
1130 DR. RAMÍREZ CALLED RE: WHEN TO RESUME ELIQUIS; DR. RAMÍREZ INSTRUCTED PT TO RESUME IT TOMORROW; PT AWARE.
== END 2021-03-26 11:41 | disposition home or self-care (01) ==
PROVIDERS: PCP Internal Medicine; Visit Provider Urology
PROC: (CPT 52352; principal; 2021-03-26 08:30)
DX: N13.2 Hydronephrosis with renal and ureteral calculous obstruction (principal); I48.92 Unspecified atrial flutter; E78.5 Hyperlipidemia, unspecified; E03.9 Hypothyroidism, unspecified; I45.10 Unspecified right bundle-branch block; N40.0 Benign prostatic hyperplasia without lower urinary tract symptoms; Z79.01 Long term (current) use of anticoagulants; F17.290 Nicotine dependence, other tobacco product, uncomplicated
CPT/HCPCS: 52332; 52352; 74420; 82365; 88300; A9270; C1769; C2617; J0690; J2405; J2704; J3010; J7120; Q9966

== ENCOUNTER 2021-12-18 09:04 | Outpatient (CLI) | payer OTHER, SELFPAY ==
--- NOTE | ~2021-12-18 | XR_ITS ---
EXAMINATION: XR lumbar spine 2-3V DATE: 12/18/2021 09:22 INDICATION: Low back pain TECHNIQUE: Anteroposterior and lateral views of the lumbar spine, and cone-down lateral view of the l umbosacral junction were obtained. COMPARISON: CT, 03/22/2021 FINDINGS: Lumbar levocurvature is noted. The vertebral body heights are normal. There is no fracture. Bone alignment is maintained. There is severe loss of intervertebral disc space height from L2-3 thr ough L5-S1. Small degenerative osteophytes project from the anterior endplates of multiple vertebral bodies. There is moderate facet osteoarthritis of the lower lumbar spine. IMPRESSION: 1. Severe lumbar spondylosis without acute findings or significant interval change. Reviewed, dictated and finalized at location A. IMPRESSION: 1. Severe lumbar spondylosis without acute findings or significant interval usman norberte.
== END 2021-12-18 09:05 | disposition home or self-care (01) ==
PROVIDERS: PCP Internal Medicine; Visit Provider Internal Medicine
DX: M47.896 Other spondylosis, lumbar region (principal)
CPT/HCPCS: 72100

== ENCOUNTER 2022-01-27 17:02 | Emergency (ER) | payer OTHER, SELFPAY ==
[2022-01-27 17:12] VITALS: BP 119/62; PULSE 53; RESP 18; TEMP 36.7; O2SAT 97
--- NOTE | 2022-01-27 17:24 | ED.EAR ---
HPI - Ear Problem General Stated complaint: foreign object in ear Time Seen by Provider: 01/27/22 17:20 Source: patient Mode of arrival: ambulatory Limitations: no limitations History of Present Illness HPI Narrative: Mr. Kaur is an 81-year-old male patient presenting to the clinic today with complaints of possible foreign body in the right ear. He believes it is part of his hearing aid. He denies any pain or discomfort. Related Data Home Medications Medication Instructions Recorded Confirmed fexofenadine 180 mg tablet 180 mg PO DAILY 01/21/20 03/22/21 finasteride 5 mg tablet 5 mg PO DAILY 01/21/20 03/22/21 levothyroxine 125 mcg tablet 125 mcg PO DAILY 01/21/20 03/26/21 (Synthroid) pravastatin 40 mg tablet 40 mg PO DAILY 01/21/20 03/22/21 tamsulosin 0.4 mg capsule 0.4 mg PO DAILY 01/21/20 03/22/21 carboxymethylcellulose sodium 1 % 1 drp EACH EYE DIRECTED 01/27/22 01/27/22 eye liquid gel drops fluorouracil 1 % topical cream 1 applic topical DIRECTED 01/27/22 01/27/22 Allergies Allergy/AdvReac Type Severity Reaction Status Date / Time amoxicillin Allergy Unknown Rash Verified 01/27/22 17:24 Penicillins Allergy Unknown RED ITCHY Verified 01/27/22 17:24 RASH Review of Systems Review of Systems: Pertinent positives per HPI. Patient denies any fever, chills, rash, headache, visual changes, dizziness, cough, runny nose, sore throat, shortness of breath, chest pain, palpitations, nausea, vomiting, diarrhea, constipation, abdominal pain, or any urinary issues. [facility] Past Medical History Medical History Atrial flutter with rapid ventricular response Benign prostatic hyperplasia Hyperlipidemia Hypothyroidism Melanoma Right bundle branch block (RBBB) Skin cancer Tobacco dependence Surgical History Surgical History H/O partial thyroidectomy History of right inguinal hernia repair History of tonsillectomy Hx of vasectomy Family History Family History Father Colon cancer Mother Cancer of stomach Daughter Migraines Social History Social History Social History: Mr. Kaur lives at home with his Rody Kaur. He has 4 children. 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 He wises to be a full code and he has designated his , Rody Kaur, as his surrogate decision maker. He smokes a pipe and notes the tobacco equivalent to 3/4 PPD. He reports a 60 year smoking hx. He reports a hx of alcohol use (2-3 rum drinks) 20 years ago. He denies current alcohol or substance use. Smoking packs per day: 0.75 Smoking cigarettes per day: 15.0 Years smoked: 60 Smoking pack-years: 45.00 Smoking status: Current every day smoker Tobacco type: pipe Additional smoking assessment comments: HAS SMOKED A PIPE X 65 YRS Alcohol intake: former Substance use: never Substance use type: does not use Gender identity (if verbalized by the patient): Male Sexual Orientation (if Verbalized by the Patient): Straight or Heterosexual Spiritual care concerns: No Comments At the time of my signature, I reviewed and agree with the nursing past medical, surgical, social, and family history. There is no relevant family history pertinent to the patient complaint. Exam Narrative: General: Well-developed, well nourished, in no apparent distress Head: Normocephalic, atraumatic Eyes: Pupils equally round and reactive to light bilaterally, EOM intact, sclera and conjunctive clear, no discharge, lids normal Ears: Rubber cone from hearing aid lodged in the right ear canal, foreign body was removed with a curette, TMs intact and clear, ear canals clear, no drainage, grossly hearing normal. Cardio: Regular rate and rhythm, s1 and s2 normal, no murmur appreciated. Resp: Natasha
== END 2022-01-27 17:29 | disposition home or self-care (01) ==
PROVIDERS: Emergency Provider Nurse Practitioner Family; PCP Internal Medicine
DX: T16.1XXA Foreign body in right ear, initial encounter (principal); X58.XXXA Exposure to other specified factors, initial encounter; I48.92 Unspecified atrial flutter; N40.0 Benign prostatic hyperplasia without lower urinary tract symptoms; E78.5 Hyperlipidemia, unspecified; E03.9 Hypothyroidism, unspecified; Z85.820 Personal history of malignant melanoma of skin; Z98.52 Vasectomy status; F17.290 Nicotine dependence, other tobacco product, uncomplicated
CPT/HCPCS: 69200; 99212; G0463

== ENCOUNTER 2023-05-06 02:45 | Day surgery (SDC) | payer OTHER, SELFPAY ==
--- NOTE | 2023-05-01 08:26 | PC.NURSE ---
Report to the Outpatient Waiting Room, entrance under the green pavilion located off [facility], at time __0700 on date __05/06/23 . Planned Procedure Time: __0900 . Time changes happen often and if your time is changed the preop area will call you the afternoon before. - You and your visitor will be asked to self-screen and do not enter if you have any COVID symptoms. - A mask is optional within the hospital at this time. Patients may have clear liquids (water, carbonated beverages, clear teas, apple juice) until 3 hours prior to surgery with a maximum of 20 ounces. - No food from midnight until time of surgery - Infants may have breast milk until 4 hours before surgery, infant formula 6 hours prior to surgery. - Children will be allowed to drink immediately following surgery. If applicable, please bring a bottle or sippy cup to assist with drinking. Juice, water, soda, and popsicles are readily available. For infants on formula, please bring formula the day of surgery. Pacifiers are allowed. Take the following medications with a SIP of water the morning of surgery: __LEVOTHYROXINE,METOPROLOL DO NOT STOP ANY OF YOUR OTHER PRESCRIPTION MEDICATIONS PRIOR TO SURGERY ?EXCEPT THE FOLLOWING Medications to discontinue per physician ___ALL VITAMINS AND SUPPLEMENTS 3 DAYS PRE OP ,LAST DOSE 05/02/[address] LO-DON'T TAKE MORNING OF SURGERY Please no make-up, nail hebrew, hairspray, perfume, deodorant, or body powder the day of surgery. No jewelry (including any body piercings) or valuables the day of surgery, leave them at home. Please take a shower or bath the night before, or the morning of, surgery with an antibacterial soap. Wear comfortable, loose fitting clothing. Children are encouraged to wear pajamas. - Jewelry must be removed prior to entering the operating room. Rings and piercings that are not removed may be cut off. - The hospital will not accept responsibility for valuables. - Please leave all valuables, including medications, at home the day of surgery. If you are going home after surgery, a licensed dedicated driver must drive you home. - NO public transportation without another adult if you receive anesthesia. - We recommend that an adult stay with you for 24 hours following discharge. - We also recommend that you do not drive, make important decision, drink alcoholic beverages, or take any drugs that were not prescribed by your health care provider for at least 24 hours after your discharge time. For Pediatric surgeries, we recommend two adults accompany the child home. Follow any additional instructions given to you from your surgeon. If you or anyone in your household have experienced Covid symptoms in the past week, please notify your surgeon or the nurse liaison at the phone number below for possible testing. Telephone instructions given to __PATIENT and asked if any additional questions and then verbalized understanding. Patient advised to call surgeon office or pre surgery nurse liaison [phone] if any additional questions.
[2023-05-01 08:32] VITALS: BMI 23.8
[2023-05-06 07:06] VITALS: BP 123/59; PULSE 51; RESP 18; TEMP 36.5; O2SAT 100
--- NOTE | 2023-05-06 07:14 | WPDHPUPDATE1 ---
History and Physical Update Update Date/Time: 05/06/23 07:14 History and Physical has been reviewed, including an updated exam of the patient. There are NO changes in the patient's condition. Risks, benefits, and alternatives have been discussed and questions answered. Patient agrees to proceed with procedure.
--- NOTE | 2023-05-06 08:18 | WPDANESEPPF ---
Anes - Initial Pre Proc Eval Procedure: Operation Date: 05/06/23 09:00 Proposed Procedures p Excision Ulcerated Neoplasm Unspecified Behavior Left Ala with Frozen Section, Possible Local Tissue Transfer or Free Composite Ear Graft - Adriano Pitt MD Date/Time: 05/06/23 08:18 Surgeon: Adriano Pitt MD Pre Op Diagnosis: ulc neopl unspec behav left ala Patient Data Age: 82 Gender: M Height: 1.75 m Weight: 74.7 kg Last Vital Signs Temp 36.5 C 05/06/23 07:06 Pulse 51 L 05/06/23 07:06 Resp 18 05/06/23 07:06 BP 123/59 L 05/06/23 07:06 Pulse Ox 100 05/06/23 07:06 O2 Del Method Room Air 05/06/23 07:06 Allergies Allergy/AdvReac Type Severity Reaction Status Date / Time amoxicillin Allergy Unknown Rash Verified 05/06/23 07:22 Penicillins Allergy Unknown RED ITCHY Verified 05/06/23 07:22 RASH Home Medications Medication Instructions Recorded Confirmed Type fexofenadine 180 mg tablet 180 mg PO DAILY 01/21/20 05/06/23 History finasteride 5 mg tablet 5 mg PO DAILY 01/21/20 05/06/23 History levothyroxine 125 mcg tablet 125 mcg PO DAILY 01/21/20 05/06/23 History (Synthroid) pravastatin 40 mg tablet 40 mg PO DAILY 01/21/20 05/06/23 History tamsulosin 0.4 mg capsule 0.4 mg PO DAILY 01/21/20 05/06/23 History apixaban 5 mg tablet (Eliquis) 5 mg PO Q12HR 30 days #60 tabs 01/22/20 05/06/23 Rx carboxymethylcellulose sodium 1 % 1 drp EACH EYE DIRECTED 01/27/22 05/06/23 History eye liquid gel drops fluorouracil 1 % topical cream 1 applic topical DIRECTED 01/27/22 05/06/23 History metoprolol tartrate 25 mg tablet 25 mg PO Q12HR 05/01/23 05/06/23 History [id number]-[id number] 300 mcg-K 60 1 tablet PO DAILY 05/01/23 05/06/23 History mcg-lycop 600 mcg-lutein 300 mcg tablet (Centrum Silver Men) Patient hx anesthesia problems: none Family hx anesthesia problems: none Results Review: All pre-operative results and documents have been reviewed as part of the pre-operative evaluation. [facility] Past Medical History Medical History Atrial flutter with rapid ventricular response Benign prostatic hyperplasia Hyperlipidemia Hypothyroidism Melanoma Right bundle branch block (RBBB) Skin cancer Tobacco dependence Surgical History Surgical History H/O partial thyroidectomy History of right inguinal hernia repair History of tonsillectomy Hx of vasectomy Family History Family History Father Colon cancer Mother Cancer of stomach Daughter Migraines Social History Social History Social History: Mr. Kaur lives at home with his Rody Kaur. He has 4 children. 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 He wises to be a full code and he has designated his , Rody Kaur, as his surrogate decision maker. He smokes a pipe and notes the tobacco equivalent to 3/4 PPD. He reports a 60 year smoking hx. He reports a hx of alcohol use (2-3 rum drinks) 20 years ago. He denies current alcohol or substance use. Smoking packs per day: 0.75 Smoking cigarettes per day: 15.0 Years smoked: 60 Smoking pack-years: 45.00 Smoking status: Current every day smoker Tobacco type: pipe Additional smoking assessment comments: CURRENTLY SMOKES A PIPE X 70 YRS Alcohol intake: former Substance use: never Substance use type: does not use Living arrangements: with family Occupation/Education: retired Gender identity (if verbalized by the patient): Male Sexual Orientation (if Verbalized by the Patient): Straight or Heterosexual Spiritual care concerns: No Anes - Eval Final PreProcedure Day of Procedure 05/06/23 08:18 Patient weight: normal Heart: regular rate and rhythm Lungs: decreased breath sounds Airway: Mallampati scale class II Neurologica
[2023-05-06] MEDS: LIDO 1%/EPINEPHRINE 1:100,000 50 ML VIAL 8 ML INFILTRATE (09:46)
[2023-05-06] MEDS: BACITRACIN OINTMENT 15 GM TUBE 1 APPLIC TOPICAL (09:46)
[2023-05-06 11:30] VITALS: BP 116/98; PULSE 71; RESP 14; O2SAT 92
[2023-05-06] MEDS: LACTATED RINGERS 1,000 ML 30 ML IV CONT ×2 (11:30)
--- NOTE | 2023-05-06 11:52 | W.PM.PROC2 ---
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 He was then taken to the operating room where he was placed supine on the operating table. He was given IV sedation with an LMA intubation. The entire face was prepped and draped in usual fashion. The time-out was held and confirmed. The site on the left nasal ala was marked for excision this extended right to the caudal rim of the ala. The area was infiltrated with 1% lidocaine with epinephrine. The excision was carried out through full-thickness of skin sparing the mucosa. No cartilage was excised. The specimen is marked at its superior aspect with a suture for 12 o'clock and sent to pathology. The pathologist reported that the lesion is a basal cell carcinoma and that was completely excised. The composite graft was harvested from the left pinna. This was marked based on the wound site. The dimensions were outlined on the posterior aspect of the ear and incised through the posterior skin and cartilage and removed. It was tailored and inset using 5 0 nylon sutures. It appeared to hold the ala in stable and normal position. The donor site was closed with the running 4-0 Monocryl suture. Antibiotic ointment was applied to each site and a 4 x 4 gauze taped to the back of his head behind the ear. He was discharged from the operating room stable condition. He is being discharged with a prescription for clindamycin 150 mg 4 times a day for 7 days. He has a prescription for hydrocodone 5/325 5. He has instructions in wound care and follow-up Estimated Blood Loss 5 Drains No Packing No Pathology Yes Complications No immediate complications Condition Stable Disposition Same day
[2023-05-06 12:00] VITALS: BP 110/50; PULSE 60; RESP 14; O2SAT 92
[2023-05-06 12:30] VITALS: BP 114/52; PULSE 55; RESP 14
== END 2023-05-06 12:46 | disposition home or self-care (01) ==
PROVIDERS: PCP Internal Medicine; Visit Provider Plastic Surgery
PROC: (CPT 11641; principal; 2023-05-06 09:00)
DX: C44.311 Basal cell carcinoma of skin of nose (principal); I48.92 Unspecified atrial flutter; E78.5 Hyperlipidemia, unspecified; N40.0 Benign prostatic hyperplasia without lower urinary tract symptoms; E89.0 Postprocedural hypothyroidism; I45.10 Unspecified right bundle-branch block; Z79.01 Long term (current) use of anticoagulants; F17.290 Nicotine dependence, other tobacco product, uncomplicated
CPT/HCPCS: 11641; 15760; 88305; 88331; A9270; J1100; J2371; J2405; J2704; J3010; J7120

== ENCOUNTER 2023-12-17 09:22 | Emergency (ER) | payer OTHER, SELFPAY ==
[2023-12-17 09:24] VITALS: BP 125/51; PULSE 50; RESP 18; TEMP 36.2; O2SAT 97
--- NOTE | 2023-12-17 09:25 | ED.URI ---
HPI - URI/Sore Throat General Chief Complaint: Upper Respiratory Infection Stated Complaint: cough Time Seen by Provider: 12/17/23 09:27 Source: patient, RN notes reviewed and old records reviewed Mode of arrival: ambulatory Limitations: no limitations History of Present Illness HPI Narrative: 83 year old male who presents to [facility] care with complaints of persistent cough for over one week duration. He reports that he was exposed to grandson who had cough and then he came down with cough 3 days later. Patient reports that he has been taking Lubna and Mucinex DM for his symptoms without resolution in his symptoms. Patient reports that his cough has awakened him at night but he coughs all day also.Patient reports that cough is at times productive of white mucous, denies any known fevers, chills or sweats or body aches. MD elicited complaint: cough, rhinorrhea, nasal congestion and sinus pain Pertinent past history: other (history of sinus problems) Onset (ago): week(s) (greater than one week) Consistency: constant Severity: moderate Description of mucous: clear and other (white) Able to tolerate fluids by mouth: Yes Treatments prior to arrival: other (Mucinex DM and Lubna) Related Data Home Medications Medication Instructions Recorded Confirmed fexofenadine 180 mg tablet 180 mg PO DAILY 01/21/20 12/17/23 finasteride 5 mg tablet 5 mg PO DAILY 01/21/20 12/17/23 levothyroxine 125 mcg tablet 125 mcg PO DAILY 01/21/20 12/17/23 (Synthroid) pravastatin 40 mg tablet 40 mg PO DAILY 01/21/20 12/17/23 tamsulosin 0.4 mg capsule 0.4 mg PO DAILY 01/21/20 12/17/23 carboxymethylcellulose sodium 1 % 1 drp EACH EYE DIRECTED 01/27/22 12/17/23 eye liquid gel drops fluorouracil 1 % topical cream 1 applic topical DIRECTED 01/27/22 12/17/23 metoprolol tartrate 25 mg tablet 25 mg PO Q12HR 05/01/23 12/17/23 [id number]-ov-[id number] 300 mcg-K 60 1 tablet PO DAILY 05/01/23 12/17/23 mcg-lycop 600 mcg-lutein 300 mcg tablet (Centrum Silver Men) Allergies Allergy/AdvReac Type Severity Reaction Status Date / Time amoxicillin Allergy Unknown Rash Verified 12/17/23 09:27 Penicillins Allergy Unknown RED ITCHY Verified 12/17/23 09:27 RASH ampicillin Allergy Rash Verified 12/17/23 09:27 Review of Systems Review of Systems: CONSTITUTIONAL: Denies malaise, chills, sweats, or fever. EYES: Denies visual changes, redness, or discharge. ENT: Reports rhinorrhea, congestion, sinus pressure,no otalgia and no sore throat. CARDIOVASCULAR: Denies chest pain, palpitations, or edema. RESPIRATORY: Reports cough.? Denies dyspnea. GASTROINTESTINAL: Denies abdominal pain, nausea, vomiting, diarrhea SKIN: Denies rash or itching. MUSCULOSKELETAL: Denies myalgia. NEUROLOGIC: Denies headache. All systems reviewed & are unremarkable except as noted in HPI and below PMFSH Past Medical History Medical History Atrial flutter with rapid ventricular response Benign prostatic hyperplasia Hyperlipidemia Hypothyroidism Melanoma Right bundle branch block (RBBB) Skin cancer Tobacco dependence Surgical History Surgical History H/O partial thyroidectomy History of right inguinal hernia repair History of tonsillectomy Hx of vasectomy Family History Family History Father Colon cancer Mother Cancer of stomach Daughter Migraines Social History Social History Social History: Mr. Kaur lives at home with his Rody Kaur. He has 4 children. 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 He wises to be a full code and he has designated his , Rody Kaur, as his surrogate decision maker. He smokes a pipe and notes the tobacco equivalent to 3/4 PPD. He reports a 60 year smoking hx. He reports a hx of alcohol use (2-3 r
== END 2023-12-17 09:49 | disposition home or self-care (01) ==
PROVIDERS: Emergency Provider Registered Nurse; PCP Internal Medicine
DX: J32.9 Chronic sinusitis, unspecified (principal); R05.1 Acute cough; F17.290 Nicotine dependence, other tobacco product, uncomplicated; I48.92 Unspecified atrial flutter; N40.0 Benign prostatic hyperplasia without lower urinary tract symptoms; E78.5 Hyperlipidemia, unspecified; E03.9 Hypothyroidism, unspecified; Z85.820 Personal history of malignant melanoma of skin; Z90.89 Acquired absence of other organs; Z98.52 Vasectomy status
CPT/HCPCS: 99213; G0463

== ENCOUNTER 2023-12-21 14:05 | Outpatient (CLI) | payer OTHER, SELFPAY ==
--- NOTE | ~2023-12-21 | US_ITS ---
EXAMINATION: US venous doppler [facility] DATE: 12/21/2023 15:05 INDICATION: Left lower limb edema. TECHNIQUE: Grayscale ultrasound images without and with compression and Doppler ultrasound images of the left lower extremity veins were obtained. COMPARISON: None. FINDINGS: The visualized portions of left common femoral vein, profunda (deep) femoral vein, femoral vein, popl iteal vein, peroneal veins, posterior tibial veins, and greater saphenous vein outflow are patent. IMPRESSION: 1. No deep venous thrombosis. Reviewed, dictated and finalized at location A.
== END 2023-12-21 14:06 | disposition home or self-care (01) ==
PROVIDERS: PCP Internal Medicine; Visit Provider Internal Medicine
DX: R60.0 Localized edema (principal)
CPT/HCPCS: 93971

== ENCOUNTER 2023-12-21 22:21 | Emergency (ER) | payer OTHER, SELFPAY ==
--- NOTE | 2023-12-21 22:23 | ECG_ITS ---
Test Date: 2023-12-21 22:26:17 Measurements Intervals [place] Rate: 55 P: 0 NV: 0 QRS: -53 QRSD: 137 T: 44 QT: 419 QTc: 403 Interpretive Statements SINUS RHYTHM WITH FIRST DEGREE AV BLOCK RIGHT BUNDLE BRANCH BLOCK No previous ECG available for comparison Electronically Signed On 12-22-2023 13:33:11 CDT by Tierney Patel M.D.
[2023-12-21 23:52] VITALS: PULSE 54
[2023-12-21 23:54] VITALS: BP 124/78; PULSE 57; RESP 14; O2SAT 99
[2023-12-22 00:52] VITALS: BP 108/63; PULSE 51; RESP 21; O2SAT 97
--- NOTE | 2023-12-22 02:00 | ED.ARRPALP ---
HPI - Arrhythmia/Palpitations General Chief Complaint: Arrhythmia/Palpitations Stated Complaint: palpitations Time Seen by Provider: 12/22/23 01:37 History of Present Illness HPI narrative: 83-year-old male with history of paroxysmal AFib, hyperlipidemia hypothyroidism presents to the emergency department because his Apple watch woke him up from his sleep and told him he was in AFib. Patient states he was sleeping when he was notified by his wash that he was in AFib. He woke up his became to the ED for further evaluation. He denies chest pain or shortness of breath, lightheadedness or dizziness, abdominal pain. States he feels at his baseline and has no complaints. He is taking Eliquis and metoprolol which he states he is compliant with. States his social media intern was Dr. Funes but he is scheduled to change to Dr. Clements. His next appointment is in January with Dr. Clements. Related Data Home Medications Medication Instructions Recorded Confirmed fexofenadine 180 mg tablet 180 mg PO DAILY 01/21/20 12/17/23 finasteride 5 mg tablet 5 mg PO DAILY 01/21/20 12/17/23 levothyroxine 125 mcg tablet 125 mcg PO DAILY 01/21/20 12/17/23 (Synthroid) pravastatin 40 mg tablet 40 mg PO DAILY 01/21/20 12/17/23 tamsulosin 0.4 mg capsule 0.4 mg PO DAILY 01/21/20 12/17/23 carboxymethylcellulose sodium 1 % 1 drp EACH EYE DIRECTED 01/27/22 12/17/23 eye liquid gel drops fluorouracil 1 % topical cream 1 applic topical DIRECTED 01/27/22 12/17/23 metoprolol tartrate 25 mg tablet 25 mg PO Q12HR 05/01/23 12/17/23 [id number] 300 mcg-K 60 1 tablet PO DAILY 05/01/23 12/17/23 mcg-lycop 600 mcg-lutein 300 mcg tablet (Centrum Silver Men) Allergies Allergy/AdvReac Type Severity Reaction Status Date / Time amoxicillin Allergy Unknown Rash Verified 12/21/23 22:27 Penicillins Allergy Unknown RED ITCHY Verified 12/21/23 22:27 RASH ampicillin Allergy Rash Verified 12/21/23 22:27 Review of Systems Review of Systems: CONSTITUTIONAL: Denies fever, chills, or sweats. EYES: Denies visual changes, redness, or discharge. ENT: Denies rhinorrhea, congestion, sore throat, or otalgia. CARDIOVASCULAR: see HPI RESPIRATORY: Denies cough or dyspnea. GASTROINTESTINAL: Denies abdominal pain, nausea, vomiting, or diarrhea. GENITOURINARY: Denies dysuria or hematuria. SKIN: Denies rash or itching. MUSCULOSKELETAL: Denies back pain, joint pain, or myalgia. NEUROLOGIC: Denies headache, numbness, or weakness. PSYCHIATRIC: Denies anxiety or depression. [facility] Past Medical History Medical History Atrial flutter with rapid ventricular response Benign prostatic hyperplasia Hyperlipidemia Hypothyroidism Melanoma Right bundle branch block (RBBB) Skin cancer Tobacco dependence Surgical History Surgical History H/O partial thyroidectomy History of right inguinal hernia repair History of tonsillectomy Hx of vasectomy Family History Family History Father Colon cancer Mother Cancer of stomach Daughter Migraines Social History Social History Social History: Mr. Kaur lives at home with his Rody Kaur. He has 4 children. 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 He wises to be a full code and he has designated his , Rody Kaur, as his surrogate decision maker. He smokes a pipe and notes the tobacco equivalent to 3/4 PPD. He reports a 60 year smoking hx. He reports a hx of alcohol use (2-3 rum drinks) 20 years ago. He denies current alcohol or substance use. Smoking packs per day: 0.75 Smoking cigarettes per day: 15.0 Years smoked: 60 Smoking pack-years: 45.00 Smoking status: Current every day smoker Tobacco type: pipe Additional smoking assessment comments: CURRENTLY SMOKES A PIPE X 70 YRS
[2023-12-22 02:04] VITALS: TEMP 36.6
--- NOTE | 2023-12-22 14:29 | PCCARD ---
CANCELLED EKG ORDERED 12/22/23 @ 01:53. WAS NOT DONE. PATIENT DC'D
== END 2023-12-22 02:10 | disposition home or self-care (01) ==
PROVIDERS: Emergency Provider Physician Assistant; PCP Internal Medicine
DX: I48.0 Paroxysmal atrial fibrillation (principal); E78.5 Hyperlipidemia, unspecified; E03.9 Hypothyroidism, unspecified; F17.210 Nicotine dependence, cigarettes, uncomplicated
CPT/HCPCS: 93005; 93971; 99284

== ENCOUNTER 2024-06-02 09:38 | Outpatient (CLI) | payer OTHER, SELFPAY ==
--- NOTE | ~2024-06-02 | CT_ITS ---
EXAMINATION: CT abdomen pelvis wo/w con DATE: 06/02/2024 10:42 INDICATION: Hematuria. TECHNIQUE: Computed tomography (CT) of the abdomen and pelvis was performed without and with intraven ous contrast using a total of 130 mL Omnipaque-350 intravenous contrast with a double-bolus technique for simultaneous opacification of the renal parenchyma and renal collecting system. Automated exposu re control and iterative reconstruction technique were employed. The dose-length product was 1186.51 mGy-cm. COMPARISON: CT abdomen and pelvis 03/22/2021 FINDINGS: The visualized portions of the lung bases demonstrate mild atelectasis in the left. No pleural effusi on. The heart size is normal. No pericardial effusion. There are cysts in the liver measuring up to 5 .8 cm. The gallbladder, spleen, pancreas, and adrenal glands are normal. There are cysts in the kidne ys measuring up to 2.1 cm on the right. There is a 7 mm stone in right kidney. There are three stones in the bladder measuring up to 5 mm. The ureters are not well opacified distally, but are normal. Th e prostate is moderately enlarged. There is diverticulosis of the colon without evidence of diverticu litis. There are no dilated loops of bowel. The appendix is normal. There are no pathologically enlar ged lymph nodes. There is no free intraperitoneal fluid. There is a left inguinal hernia containing f at. There is severe lumbar spondylosis. IMPRESSION: 1. Stones in the right kidney and in the bladder. Reviewed, dictated and finalized at location A. IN MAKER HAND
--- NOTE | ~2024-06-02 | XR_ITS ---
XR abdomen/kub 1V 06/02/2024 10:18 Indication: Microhematuria Procedure: KUB Comparison: CT dated 03/22/2021 Findings: There is a linear right renal stone at the lower pole. 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 Bowel gas pattern nonobstructive. Moderate colonic fecal loading. There are calcifications in the pelvis which are nonspecific. Cannot exclude distal u reteral or bladder stones. Impression: 1: Calcifications in the pelvis, nonspecific. Consider distal ureteral and bladder stones. Correlate with CT. 2: Right nephrolithiasis. 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 Reviewed, dictated and finalized at location B. TENDER Impression: 1: Calcifications in the pelvis, nonspecific. Consider distal ureteral and blad elvis stones. Correlate with CT. 2: Right nephrolithiasis. 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
[2024-06-02 10:30] LABS: Estimated Glomerular Filt Rate 48
== END 2024-06-02 09:39 | disposition home or self-care (01) ==
PROVIDERS: PCP Internal Medicine; Visit Provider Urology
DX: N20.0 Calculus of kidney (principal); N21.0 Calculus in bladder
CPT/HCPCS: 74018; 74178; Q9967